=== PATIENT | female | born 1995 | race Caucasian/White ===

== ENCOUNTER 2018-05-27 19:34 | Emergency (ER) | payer BC ==
[2018-05-27] MEDS ORDERED: Ibuprofen 200 MG TAB ONE (20:12)
--- NOTE | 2018-05-27 20:50 | RAD ---
RIGHT WRIST RADIOGRAPHS THREE VIEWS: 05/27/2018 PROVIDED CLINICAL HISTORY: Right wrist pain, status post injury. FINDINGS: There is no evidence for fracture or other acute osseous abnormality. If there is persistent clinical concern, conservative management and follow-up imaging are advised. IMPRESSION: As above. POS: [facility]
--- NOTE | 2018-05-27 20:51 | RAD ---
LEFT FOOT RADIOGRAPHS THREE VIEWS: 05/27/2018 PROVIDED CLINICAL HISTORY: Right foot pain, status post injury. FINDINGS: There is no evidence for fracture or other acute osseous abnormality. If there is persistent clinical concern, conservative management and follow-up imaging are advised. IMPRESSION: As above. POS: [facility]
== END 2018-05-27 20:50 | disposition home or self-care (01) ==
LOC: SCSER 19:34
DX: M25.531 Pain in right wrist (principal); M25.572 Pain in left ankle and joints of left foot; W11.XXXA Fall on and from ladder, initial encounter